=== PATIENT | female | born 1995 | race Caucasian/White ===

== ENCOUNTER 2023-08-15 19:36 | Emergency (ER) | payer OTHER, SELFPAY ==
[2023-08-15 19:37] VITALS: BP 125/71; PULSE 58; RESP 16; TEMP 36.5; O2SAT 98; BMI 32.0
--- NOTE | 2023-08-15 19:49 | PC.NURSE ---
rounded on pt no needs at this time
--- NOTE | 2023-08-15 19:51 | XR_ITS ---
PROCEDURE INFORMATION: Exam: XR Right Foot Exam date and time: 08/15/2023 7:54 PM Age: 28 years old Clinical indication: Pain; Right; Patient HX: Wood gaetano fell onto top of PT foot at metatarsal/tarsal area; Additional info: Injury. TECHNIQUE: Imaging protocol: Radiologic exam of the right foot. Views: 3 or more views. COMPARISON: No relevant prior studies available. FINDINGS: Bones/joints: No acute fracture or dislocation. Soft tissues: Normal. IMPRESSION: No acute fracture or dislocation.
--- NOTE | 2023-08-15 20:14 | PC.NURSE ---
seen by Dr. Smith at this time.
--- NOTE | 2023-08-15 20:15 | HMH.EDGENADL ---
Discharge Plan Disposition Patient Disposition: Home, Self-Care Referrals Follow up/Referrals: Provider,Referral, MD [Primary Care Provider] - See instructions Activity Restrictions/Add. Instructions Additional Instructions/Restrictions: At this time it was felt you are safe to be discharged home. If new or worsening symptoms please do not hesitate to return the emergency department. If symptoms persist please follow-up with your family doctor as you are able. Please bear weight as tolerated on your affected foot. Clinical Impressions Clinical Impression: Foot trauma Discharge ED Provider: Juve Smith General Adult HPI General Chief complaint: Extremity Injury, Lower Stated complaint: AO08/15 Rt foot inj Time Seen by Provider: 08/15/23 19:50 Mode of Arrival: Ambulatory Source of Information: Patient Limitations: No Limitations Description of Symptoms (Recalled from ER Triage Doc. by RN): Presents to ED with c/o right foot pain. Patient reports she had a large piece of wood and dropped it on the top of her foot. +PMS. Patient is able to bare weight. No notable swelling or brusing to extremity. Denies taking any meds [employer] History of Present Illness HPI narrative: Patient is a 28-year-old female with no pertinent past medical history who presents emergency department for evaluation right foot trauma. Patient was laying hardwood floor when a piece of hardwood fell and hitting the dorsal aspect of her right foot. Due to persistent pain and limited weightbearing she presents here for continued evaluation. No other acute complaints at this time. Related Data Allergies Allergy/AdvReac Type Severity Reaction Status Date / Time silicone Allergy Verified 08/15/23 19:51 [facility] Disclaimer: The information contained in this section may have been updated after the patient was seen, as this information can be updated by other users. Social History Smoking Status: Never smoker alcohol intake: never current occupational status: other Travel in the last 8 weeks: None ROS Obtained: Yes Systems reviewed as appropriate & no additional complaints except as documented Physical Exam General General appearance: alert and in no apparent distress Head Head exam: atraumatic and normocephalic Eye Eye exam: Present PERRL ENT ENT exam: Present mucous membranes moist Neck Neck exam: Present normal inspection Chest Chest inspection: Present normal inspection and symmetric chest wall rise Respiratory Respiratory exam: Absent respiratory distress Cardiovascular Cardiovascular exam: Present regular rate and normal rhythm Extremities Exam Extremities exam: Present other (Bruising over the dorsal aspect of the right foot. Tenderness over the dorsal aspect of the metatarsals. Capillary refill preserved distally. Palpable dorsal pedal pulse on the right.) Neurological Exam Neurological exam: Present alert Psychiatric Psychiatric exam: Present normal affect Skin Skin exam: Present warm and dry Medical Decision Making Christopher Inquiry Pt receiving controlled substance: No Vital Signs: 08/15/23 19:37 Temperature 97.7 F Temperature Source Oral Pulse Rate [Left] 58 L Respiratory Rate 16 Blood Pressure [Left Arm] 125/71 Blood Pressure Mean [Left Arm] 89 Blood Pressure Source [Left Arm] Automatic Cuff Blood Pressure Position [Left Arm] Sitting 02 Sat by Pulse Oximetry 98 Oxygen Delivery Method Room Air Orders (Tests/Meds): ORDERS Category Date Time Status Foot XR right minimum 3 views [XR foot RT min 3V] Stat Exams 08/15/23 19:51 Taken Medical Decision Narrative: In summary patient is a 28-year-old female with past medical history described above who presents emergency department for evaluation of right dorsal foot trauma. Patient is hemodynamically stable upon arrival. Limited trauma given history and physical work-up will be conducted with plain film of the right foot. Differential inclu
[2023-08-15 20:46] VITALS: BP 122/69; PULSE 85; RESP 16; TEMP 36.6
== END 2023-08-15 20:47 | disposition home or self-care (01) ==
LOC: ER 20:23
PROVIDERS: Emergency Provider Emergency Medicine
DX: S99.921A Unspecified injury of right foot, initial encounter (principal); W20.8XXA Other cause of strike by thrown, projected or falling object, initial encounter
CPT/HCPCS: 73630; 99283

== ENCOUNTER 2024-10-21 09:18 | Outpatient (CLI) | payer BC, SELFPAY ==
[2024-10-21 09:42] LABS: Hemoglobin 12.9 g/dL (12.2-16.2); Mean Corpuscular HGB Conc 33.1 g/dL (31.8-35.4); Mean Corpuscular Hemoglobin 30.3 pg (27.0-31.2); Mean Corpuscular Volume 91.5 fl (81-99); Platelet Count 234 K/mm3 (142-424); Red Blood Count 4.26 M/mm3 (4.20-5.40); Red Cell Distribution Width 11.6 % (11.5-17.5); White Blood Count 9.5 K/mm3 (4.8-10.8)
[2024-10-21 10:39] LABS: Alanine Aminotransferase 16 U/L (12-78); Albumin Level 4.4 g/dl (3.5-5.0); Alkaline Phosphatase 64 U/L (38-126); Anion Gap 10.3 mEq/L (5-15); Aspartate Amino Transferase 25 U/L (14-36); Bilirubin,Total 0.9 mg/dl (0.2-1.3); Blood Urea Nitrogen 9 mg/dl (7-17); Calcium 9.3 mg/dl (8.4-10.2); Carbon Dioxide 27 mmol/L (22.0-30.0); Chloride 105 mmol/L (98-107); Estimated Glomerular Filt Rate 119 ml/min (>60); GFR (African American) 144 ML/MIN (>60); Globulin 2.2 g/dL (1.3-3.2); Glucose 90 mg/dl (74-100); Potassium 4.3 mmoL/L (3.5-5.1); Sodium 138 mmol/L (136-145); Total Protein,Serum 6.6 g/dl (6.3-8.2)
[2024-10-21 10:54] LABS: Free T4 (Free Thyroxine) 0.95 ng/dl (0.78-2.19)
[2024-10-21 11:08] LABS: Thyroid Stimulating Hormone 1.07 uIU/mL (0.465-4.68)
[2024-10-22 09:16] LABS: Thyroid Peroxidase Antibodies 15 IU/mL (0-34); Triiodothyronine (T3) Free 3.2 pg/mL (2.0-4.4)
== END 2024-10-21 23:59 | disposition home or self-care (01) ==
LOC: LAB 09:22
PROVIDERS: PCP Nurse Practitioner; Visit Provider Nurse Practitioner
DX: R63.5 Abnormal weight gain (principal); R63.8 Other symptoms and signs concerning food and fluid intake; Z68.30 Body mass index [BMI] 30.0-30.9, adult; Z83.49 Family history of other endocrine, nutritional and metabolic diseases
CPT/HCPCS: 36415; 80053; 84439; 84443; 84481; 85027; 86376

== ENCOUNTER 2024-11-09 09:56 | Emergency (ER) | payer BC, SELFPAY ==
[2024-11-09 10:08] VITALS: BP 128/73; PULSE 88; RESP 18; TEMP 36.4; O2SAT 100; BMI 31.8
[2024-11-09 10:21] LABS: UTC Influenza A Antigen Negative (Negative); UTC Influenza B Antigen Negative (Negative)
--- NOTE | 2024-11-09 10:24 | ED_ITS ---
Discharge Plan Disposition Patient Disposition: Home, Self-Care Condition: Good Prescriptions Prescriptions: New amoxicillin 500 mg tablet 500 mg PO BID 10 Days Qty: 20 0RF No Action escitalopram oxalate 20 mg tablet 20 mg PO DAILY Patient Comments: TAKE 1 TABLET BY MOUTH DAILY Referrals Follow up/Referrals: Provider,Referral, MD [Primary Care Provider] - See instructions Activity Restrictions/Add. Instructions Additional Instructions/Restrictions: Start antibiotic patient to take as ordered for a full length of time even if you feel better. Sinus infections do not get better overnight. It may take 2-3 days to notice much improvement so be sure to use conservative measures as discussed for symptoms. Flonase 1 spray each nostril daily to help with nasal congestion, sinus and ear pressure/information Increase fluids Humidifier/vaporizer as needed Tylenol and ibuprofen as needed for fever or pain. If symptoms do not improve or get worse return or be seen in the ER Follow-up with primary care this week Clinical Impressions Clinical Impression: Acute maxillary sinusitis, Otitis media, Acute bronchitis Instructions Patient Instructions: Sinusitis, Acute Bronchitis, DI for Sinusitis, Middle Ear Infection Print Language Print Language: Tamazight Discharge ED Provider: Tyrell ([facility] [place] General Stated complaint: sinus pressure, cough, h/a, runny nose, fever Mode of Arrival: Ambulatory Source of Information: Patient Time Seen by Provider: 11/09/24 10:11 Description of Symptoms (Recalled from Triage Doc. by RN): [place]BOIS, BA, BLOOD IN NASAL DRAINAGE, FEVER, COUGH, SINUS PRESSURE,. TOOTH PAIN HEENT Symptoms (Recalled from RN notes): Yes Resp Symptoms (Recalled from RN notes): Yes Skin Symptoms (Recalled from RN notes): No MS Symptoms (Recalled from RN notes): No Functional Status (Recalled from RN notes): WNL History of Present Illness Provider Complaint: 29-year-old female presents for sinus pressure, sinus tenderness, dental pain, cough, headache, green nasal drainage, and fever for over a week Related Data Home Medications ?Medication ?Instructions ?Recorded ?Confirmed escitalopram oxalate 20 mg tablet 20 mg PO DAILY 11/09/24 11/09/24 Previous Rx's ?Medication ?Instructions ?Recorded amoxicillin 500 mg tablet 500 mg PO BID 10 days #20 tabs 11/09/24 Allergies Allergy/AdvReac Type Severity Reaction Status Date / Time silicone Allergy Verified 08/15/23 19:51 Worker's Comp Is this a Worker's Comp case?: No [facility] Disclaimer: The information contained in this section may have been updated after the patient was seen, as this information can be updated by other users. Social History (Reviewed 11/09/24 @ 10:25 by Abdi Santillan ([facility]), [employer]PER[employer]) Smoking Status: Never smoker alcohol intake: never current occupational status: other Travel in the last 8 weeks: None Have you lived/traveled outside [place] in past 30 days?: No Contact w/someone who lives/traveled outside [place] past 30 days?: No Exposure to someone with infectious disease in past 14 days?: No Do you have a fever (greater than 100.4 F or 38 C)?: Yes Have you tested positive for COVID-19: No Exposed to someone with COVID-19 in past 14 days?: No Do you have a sore throat?: No Do you have a cough?: Yes Do you have any weakness?: No Do you have any diarrhea?: No Are you experiencing any unusual bleeding?: No Do you have any muscle aches/pain?: No Do you have any abdominal pain?: No Are you experiencing loss of taste or smell?: No ROS Obtained: Yes Systems reviewed as appropriate & no additional complaints except as documented Constitutional Constitutional: Reports system reviewed and no additional complaints, except as documented, Reports as per HPI, Reports body ache and Reports fever(s) ENT Ears, Nose, Mouth, and Throat: Reports system reviewed and no additional complaints, except as documented, Reports as per HPI, Reports facial pain, Reports post nasal drip, Reports sinus pain and Reports sinus pressure Physical Exam General General appearance: alert and in no apparent distress Eye Eye exam: Present normal appearance ENT ENT exam: Present mucous membranes moist Expanded ENT Exam TM/Canal exam: Right TM: erythema and bulging Nose exam: Present sinus tenderness Respiratory Respiratory exam: Present wheezes Cardiovascular Cardiovascular exam: Present regular rate and normal rhythm Neurological Exam Neurological exam: Present alert and oriented X3 Medical Decision Making Medical Records Medical records reviewed: Yes I reviewed the patient's medical records. Screening: Per USPSTF and CDC recommendations, given the prevalence of disease in our region, it is our hospital?s policy to screen for HIV and viral Hepatitis for all patients aged 18 and over and those with ongoing risk factors. Christopher Inquiry Pt receiving controlled substance: No Vital Signs: 11/09/24 10:08 Temperature 97.6 F Temperature Source Oral Pulse Rate [Left Radial] 88 Respiratory Rate 18 Blood Pressure [Left Arm] 128/73 Blood Pressure Mean [Left Arm] 91 02 Sat by Pulse Oximetry 100 Lab Data Lab results reviewed: Yes I reviewed the patient's lab results. Lab Results 11/09/24 10:11: Influenza Type A Ag Negative, Influenza Type B Ag Negative
[2024-11-09] MEDS: DEXAMETHASONE 4MG/ML 1ML VIAL 4 MG IM (10:25)
[2024-11-09 10:46] VITALS: BP 128/73; PULSE 88; RESP 18; TEMP 36.4
== END 2024-11-09 10:48 | disposition home or self-care (01) ==
PROVIDERS: Emergency Provider Nurse Practitioner Family; PCP Nurse Practitioner
DX: J20.9 Acute bronchitis, unspecified (principal); H66.90 Otitis media, unspecified, unspecified ear; J01.00 Acute maxillary sinusitis, unspecified
CPT/HCPCS: 87804; 99213; G0381; J1100